=== PATIENT | female | born 1980 | race Caucasian/White ===

== ENCOUNTER 2017-01-10 15:15 | Emergency (ER) | payer MEDICAID ==
[~2017-01-10] VITALS: Ht 160 cm; Wt 86.2 kg
[~2017-01-10 15:15] MED LIST: HYDROCORTISONE CREAM; METOPROLOL50 MG PO; UNK PAIN MED PO
[2017-01-10 15:24] VITALS: BP 147/91
--- NOTE | 2017-01-10 16:01 | NUR ---
PATIENT PRESENTS TO ED WITH LIP SWELLING AND SLIGHT DIFFICULTY SWALLOWING, STARTED TAKING KEFLEX LAST NIGHT FOR TOOTH INFECTION --TOOK IT TWICE AND TWICE TODAY SO FAR. DENIES N/V/D; SKIN IS PINK/WARM/DRY; AAOX4 WITH EVEN AND STEADY GAIT; LUNGS CLEAR BL; HR EVEN AND REGULAR; PT DENIES ANY FEVER, CP, SOB, OR COUGH AT THIS TIME; PATIENT STATES PAIN OF 0/10 AT THIS TIME; VSS; PATIENT POSITIONED FOR COMFORT; HOB ELEVATED; BEDRAILS UP X2; BED DOWN. ER MD EVALUATED PT AT BEDSIDE.
[2017-01-10 16:10] VITALS: BP 139/95
--- NOTE | 2017-01-10 16:11 | NUR ---
Patient discharged with v/s stable. Written and verbal after care instructions given and explained. Patient alert, oriented and verbalized understanding of instructions. Ambulatory with steady gait. All questions addressed prior to discharge. ID band removed. Patient advised to follow up with PMD. Rx of ZYRTEC AND PENICILLIN given. Patient educated on indication of medication including possible reaction and side effects. Opportunity to ask questions provided and answered.
== END 2017-01-10 16:11 | disposition home or self-care (01) ==
LOC: MED 15:15
DX: K04.7 Periapical abscess without sinus (principal); I10 Essential (primary) hypertension; F41.9 Anxiety disorder, unspecified

== ENCOUNTER 2017-01-10 18:14 | Emergency (ER) | payer MEDICAID ==
[~2017-01-10] VITALS: Ht 160 cm; Wt 86.2 kg
[2017-01-10 18:28] VITALS: BP 153/95
--- NOTE | 2017-01-10 20:41 | NUR ---
PT TAKEN TO BED 3
--- NOTE | 2017-01-10 21:02 | NUR ---
Dr. Ward evaluating patient at bedside.
[2017-01-10] MEDS ORDERED: METOPROLOL 50 MG TAB PO ONE (21:05)
[2017-01-10] MEDS ORDERED: LORazepam 1 MG TAB PO ONE (21:05)
[2017-01-10] MEDS ORDERED: METOPROLOL 50 MG TAB ONE (21:07)
[2017-01-10] MEDS ORDERED: LORazepam 1 MG TAB ONE (21:08)
--- NOTE | 2017-01-10 21:13 | NUR ---
PATIENT PRESENTS TO ED WITH PANIC ATTACK . PT STATES SHE EXPERIENCED THE PANIC ATTACK ABOUT 2HOURS AGO . DENIES N/V/D; SKIN IS PINK/WARM/DRY; AAOX4 WITH EVEN AND STEADY GAIT; LUNGS CLEAR BL; HR EVEN AND REGULAR; PT DENIES ANY FEVER, CP, SOB, OR COUGH AT THIS TIME; PATIENT STATES PAIN OF 0/10 AT THIS TIME; VSS; PATIENT POSITIONED FOR COMFORT; HOB ELEVATED; BEDRAILS UP X2; BED DOWN. ER MD MADE AWARE OF PT STATUS.
--- NOTE | 2017-01-10 23:22 | NUR ---
Patient appears to be resting comfortably in bed. Vital Signs within normal limits. Respirations even and unlabored. MOM AT BEDSIDE
[2017-01-10 23:41] VITALS: BP 141/91
== END 2017-01-10 23:47 | disposition home or self-care (01) ==
LOC: MED 18:14
DX: F41.9 Anxiety disorder, unspecified (principal); I10 Essential (primary) hypertension; F40.240 Claustrophobia; R00.0 Tachycardia, unspecified